=== PATIENT | male | born 1970 | race Native Hawaiian/Other Pacific Islander ===

== ENCOUNTER 2016-06-30 13:18 | Emergency (ER) | payer SELFPAY ==
[2016-06-30 13:30] VITALS: BP 139/89
[2016-06-30 14:02] LABS: Basophils % (Auto) 0.5 % (0.0-1.8); Eosinophils % (Auto) 1.5 % (0.0-4.3); Hematocrit 46.8 % (35.5-45.6); Hemoglobin 15.6 gm/dl (11.8-15.2); Mean Corpuscular HGB Conc 33 % (32-34); Mean Corpuscular Hemoglobin 31 pg (28-32); Mean Corpuscular Volume 94 fl (84-94); Platelet Count 239 K/mm3 (140-440); Red Blood Count 4.99 M/mm3 (3.65-5.03); White Blood Count 7.7 K/mm3 (4.5-11.0)
[2016-06-30 14:16] LABS: Alanine Aminotransferase 17 units/L (7-56); Albumin 4.2 g/dL (3.9-5); Albumin/Globulin Ratio 1.4 %; Alkaline Phosphatase 99 units/L (35-129); Anion Gap 18 mmol/L; Blood Urea Nitrogen 12 mg/dL (9-20); Calcium 9.2 mg/dL (8.4-10.2); Carbon Dioxide 25 mmol/L (22-30); Chloride 101.4 mmol/L (98-107); Glucose 105 mg/dL (75-100); Lipase 26 units/L (13-60); Potassium 3.6 mmol/L (3.6-5.0); Sodium 141 mmol/L (137-145); Total Protein 7.2 g/dL (6.3-8.2)
[2016-06-30 14:36] LABS: Bilirubin,Urine NEG (Negative); Blood,Urine SM (Negative); Ketones,Urine TR mg/dL (Negative); Leukocyte Esterase,Urine NEG (Negative); Mucus,Urine 2+ /HPF; Nitrite,Urine NEG (Negative); Protein,Urine <15 mg/dL mg/dL (Negative); WBC,Urine < 1.0 /HPF (0.0-6.0)
--- NOTE | 2016-07-03 05:30 | ED Elopement Review ---
ED Pt Elopement review - Results review Lab results: Laboratory Tests 06/30/16 06/30/16 06/30/16 13:31 13:35 13:35 WBC 7.7 RBC 4.99 Hgb 15.6 H Hct 46.8 H MCV 94 MCH 31 MCHC 33 RDW 14.0 Plt Count 239 Lymph % (Auto) 19.9 Mcdonald % (Auto) 6.1 Eos % (Auto) 1.5 Baso % (Auto) 0.5 Lymph # 1.5 Mcdonald # 0.5 Eos # 0.1 Baso # 0.0 Seg Neutrophils % 72.0 H Seg Neutrophils # 5.5 Carbon Dioxide 25 Anion Gap 18 BUN 12 Creatinine 0.8 Estimated GFR > 60 BUN/Creatinine Ratio 15.00 Glucose 105 H Calcium 9.2 Total Bilirubin 0.30 AST 16 ALT 17 Alkaline Phosphatase 99 Total Protein 7.2 Albumin 4.2 Albumin/Globulin Ratio 1.4 Lipase 26 Urine Color Yellow Urine Turbidity Clear Urine pH 6.0 Ur Specific [place] 1.024 Urine Protein <15 mg/dl Urine Glucose (UA) Neg Urine Ketones Tr Urine Blood Sm Urine Nitrite Neg Urine Bilirubin Neg Urine Urobilinogen 2.0 Ur Leukocyte Esterase Neg Urine WBC (Auto) < 1.0 Urine RBC (Auto) 6.0 Urine Mucus 2+ - Call Back decision Pt Call Back Decision: No action required
== END 2016-06-30 21:47 | disposition left against medical advice (07) ==
LOC: ED 13:18
DX: R10.9 Unspecified abdominal pain (principal); Z53.21 Procedure and treatment not carried out due to patient leaving prior to being seen by health care provider
CPT/HCPCS: 36415; 80053; 81001; 83690; 85025